=== PATIENT | female | born 1995 | race Asian ===

== ENCOUNTER 2021-12-17 12:15 | Outpatient (CLI) | payer OTHER ==
[2021-12-17 12:52] LABS: POTASSIUM 3.5 mmol/L (3.6-5.2)
== END 2021-12-17 20:28 | disposition home or self-care (01) ==
LOC: LABW 12:15
PROVIDERS: ATTEND Nurse Practitioner Family
DX: R10.9 Unspecified abdominal pain (principal)
CPT/HCPCS: 36415; 80053; 82150; 83690

== ENCOUNTER 2022-02-04 11:49 | Outpatient (CLI) | payer OTHER ==
[2022-02-04 12:26] LABS: POTASSIUM 3.8 mmol/L (3.6-5.2)
== END 2022-02-04 21:36 | disposition home or self-care (01) ==
LOC: LABW 11:49
PROVIDERS: ATTEND Nurse Practitioner Family
DX: R10.84 Generalized abdominal pain (principal)
CPT/HCPCS: 36415; 80053; 82150; 83690